=== PATIENT | male | born 1985 | race Hispanic/Latino ===

== ENCOUNTER 2018-06-24 06:32 | Emergency (ER) | payer SELFPAY ==
[~2018-06-24] VITALS: Ht 182.9 cm; Wt 85.0 kg
[2018-06-24] MEDS ORDERED: AMOXICILLIN500 MG PO (08:12)
[2018-06-24] MEDS ORDERED: ROBITUSSIN AC10 ML PO (08:12)
[2018-06-24 08:40] VITALS: BP 131/78
== END 2018-06-24 08:40 | disposition home or self-care (01) | DRG 153 ==
LOC: ED 06:32
DX: J06.9 Acute upper respiratory infection, unspecified (principal)